=== PATIENT | male | born 1960 | race Hispanic/Latino ===

== ENCOUNTER → 2017-07-15 | Outpatient (CLI) | payer OTHER ==
--- NOTE | 2017-07-15 11:51 | Diagnostic Imaging Report ---
PROCEDURE:TESTICULAR ULTRASOUND COMPARISON:10/04/2015. INDICATIONS:SCROTAL VARICES TECHNIQUE: Mahmood-scale and color doppler images of the testicles and scrotal contents were obtained. Duplex imaging with spectral waveform analysis was performed of the testicular arteries and veins. FINDINGS: RIGHT SCROTUM: Testicle: 3.9 x 2.4 x 3.5 cm. Uniform parenchymal echotexture without intratesticular mass. Normal arterial and venous wave forms by spectral waveform analysis. Epididymal head: 1 x 0.6 x 0.9 cm. 0.8 cm cyst/spermatocele. Hydrocele: Small Varicocele: None LEFT SCROTUM: Testicle: 3.4 x 2.5 x 3.2 cm. Uniform parenchymal echotexture without intratesticular mass. Normal arterial and venous wave forms by spectral waveform analysis. Epididymal head: 1.4 x 0.6 x 0.6 cm. 0.3 cm cyst/spermatocele. Hydrocele: Small Varicocele: None CONCLUSION: Unremarkable sonographic appearance of the testes. Small bilateral epididymal head cysts/spermatoceles. Small bilateral hydroceles. Dictated by: Jonathon Parker M.D. on 07/15/2017 at 11:52 Electronically approved by: Jonathon Parker M.D. on 07/15/2017 at 11:52
--- NOTE | 2017-07-15 11:51 | Diagnostic Imaging Report ---
PROCEDURE:TESTICULAR DOPPLER ULTRASOUND COMPARISON:None. INDICATIONS:SCROTAL VARICES TECHNIQUE: Mahmood-scale and color doppler images of the testicles and scrotal contents were obtained. Duplex imaging with spectral waveform analysis was performed of the testicular arteries and veins. FINDINGS: See conclusion CONCLUSION: Refer to "[facility] TESTICULAR" also from 07/15/2017 for full dictated report. Dictated by: Jonathon Parker M.D. on 07/15/2017 at 11:53 Electronically approved by: Jonathon Parker M.D. on 07/15/2017 at 11:53
--- NOTE | 2017-07-15 11:53 | Diagnostic Imaging Report ---
PROCEDURE:SACRUM X-RAY INDICATION:Low back pain COMPARISON:None. FINDINGS: No acute, displaced fracture or dislocation. The inferior sacrum and coccyx is obscured by rectal gas and stool on the frontal radiograph. The upper sacral foramina are intact. The sacroiliac joints are well-maintained. Soft tissues unremarkable. CONCLUSION: No acute osseous abnormality. Dictated by: Jonathon Parker M.D. on 07/15/2017 at 11:55 Electronically approved by: Jonathon Parker M.D. on 07/15/2017 at 11:55
--- NOTE | 2017-07-15 11:57 | Diagnostic Imaging Report ---
PROCEDURE:L-SPINE COMPLETE COMPARISON:None. INDICATIONS:BACK PAIN FINDINGS: There are 5 nonrib-bearing lumbar-type vertebral bodies. No acute, displaced fracture or dislocation. No pars interarticularis defects on the oblique radiographs. There are disc space changes at L4-5 and L5-S1 with bilateral facet arthropathy at these levels. Bridging osteophytosis at L2-L3. Minimal degenerative anterolisthesis of L5 over S1. CONCLUSION: No acute osseous abnormality. Multilevel degenerative disc changes and facet arthropathy as described above. Dictated by: Jonathon Parker M.D. on 07/15/2017 at 11:59 Electronically approved by: Jonathon Parker M.D. on 07/15/2017 at 11:59
== END ==
LOC: US 09:44
PROVIDERS: ATTEND Internal Medicine
DX: I86.1 Scrotal varices (principal); N50.3 Cyst of epididymis; S73.102A Unspecified sprain of left hip, initial encounter; S33.9XXA Sprain of unspecified parts of lumbar spine and pelvis, initial encounter
CPT/HCPCS: 72110; 72220; 76870; 93976